=== PATIENT | male | born 1965 | race Caucasian/White ===

== ENCOUNTER 2021-06-10 02:40 | Day surgery (SDC) | payer BC, SELFPAY ==
[2021-05-24 14:04] VITALS: BMI 27.4
[2021-06-10 06:27] VITALS: BMI 26.6
[2021-06-10 06:35] VITALS: BP 118/80; PULSE 78; RESP 20; TEMP 36.1; O2SAT 99
[2021-06-10] MEDS: LACTATED RINGERS 1,000 ML 150 ML IV CONT (06:39)
--- NOTE | 2021-06-10 07:02 | P.PNAN_ITS ---
Anes - Initial Pre Proc Eval Procedure: Operation Date: 06/10/21 07:30 Proposed Procedures p Screening Colonoscopy - Justino Ravi MD Date/Time: 06/10/21 07:02 Surgeon: Justino Ravi MD Pre Op Diagnosis: neoplasm screening Patient Data Age: 56 Gender: M Height: 1.73 m Weight: 79.7 kg Last Vital Signs Temp 36.1 C L 06/10/21 06:35 Pulse 78 06/10/21 06:35 Resp 20 06/10/21 06:35 BP 118/80 06/10/21 06:35 Pulse Ox 99 06/10/21 06:35 Allergies Allergy/AdvReac Type Severity Reaction Status Date / Time Penicillins Allergy Unknown Unknown Verified 06/10/21 06:26 acetaminophen [From Vicodin] AdvReac Vomiting Verified 06/10/21 06:26 hydrocodone [From Vicodin] AdvReac Vomiting Verified 06/10/21 06:26 Home Medications Medication Instructions Recorded Confirmed Type No Home Medications 05/24/21 05/24/21 History Patient hx anesthesia problems: none Family hx anesthesia problems: none Results Review: All pre-operative results and documents have been reviewed as part of the pre-operative evaluation. [facility] Social History Social History Smoking status: Never smoker Alcohol intake: current Drinks per week: 1 Living arrangements: with family Spiritual care concerns: No Anes - Eval Final PreProcedure Day of Procedure 06/10/21 07:02 Patient weight: overweight Heart: regular rate and rhythm Lungs: clear to auscultation Airway: Mallampati scale class II Neurological: alert and oriented Last oral intake: >/= 8 hours ASA classification: II Emergent: no Anesthetic plan: proceed Anesthesia type and monitoring: general GIVS and standard monitoring Results Review: All pre-operative results and documents have been reviewed as part of the pre-operative evaluation. Informed Consent: The patient's anesthetic plan and its attendant risks and benefits were discussed with the patient/family/POA. Questions were solicited and answers provided to the satisfaction of the patient/family/POA.
--- NOTE | 2021-06-10 07:25 | WPDGICN ---
Assessment and Plan Assessment and plan (1) Encounter for screening colonoscopy: Code(s): Z12.11 - Encounter for screening for malignant neoplasm of colon Status: Acute Assessment and Plan: Patient presents today for screening colonoscopy. He appears to be at average risk for colon polyps. GI Consult Note Consult date/time: 06/10/21 07:25 HPI: Alon Us is a 56 year old male Presents for screening colonoscopy. Patient reports his current weight appetite bowel movements are normal. Denies abdominal pain. He has had no bleeding. Family history is noncontributory. No known first-degree relatives with polyps or cancer. Presents today for neoplasia screening colonoscopy. Review of Systems Review of Systems: All systems reviewed & are unremarkable except as noted in HPI and below PMFSH Social History Social History Smoking status: Never smoker Alcohol intake: current Drinks per week: 1 Living arrangements: with family Spiritual care concerns: No Meds Home Medications and Allergies Home Medications Medication Instructions Recorded Confirmed Type No Home Medications 05/24/21 05/24/21 History Allergies Allergy/AdvReac Type Severity Reaction Status Date / Time Penicillins Allergy Unknown Unknown Verified 06/10/21 06:26 acetaminophen [From Vicodin] AdvReac Vomiting Verified 06/10/21 06:26 hydrocodone [From Vicodin] AdvReac Vomiting Verified 06/10/21 06:26 Vital Signs Vital Signs - 24 hr 06/10/21 06:35 Temperature 96.9 F L Pulse Rate 78 Respiratory Rate 20 Blood Pressure 118/80 Pulse Oximetry 99 Exam Narrative: Physical exam reveals patient to be alert. Vital signs stable. HEENT exam is unremarkable. Patient is anicteric. Lungs are clear to auscultation and percussion. Heart is without murmur or extra sounds. Abdominal exam bowel sounds present soft nontender with no organomegaly. Digital external rectal exam is normal.
[2021-06-10 07:46] VITALS: BP 118/67; PULSE 67; RESP 20; O2SAT 97
[2021-06-10 07:56] VITALS: BP 112/78; PULSE 70; RESP 18; O2SAT 99
[2021-06-10 08:06] VITALS: BP 116/74; PULSE 68; RESP 20; O2SAT 99
== END 2021-06-10 08:18 | disposition home or self-care (01) ==
PROVIDERS: PCP Family Medicine; Visit Provider Internal Medicine Gastroenterology
PROC: 0DJD8ZZ Inspection of Lower Intestinal Tract, Via Natural or Artificial Opening Endoscopic (ICD-10-PCS; CPT 45378; principal; 2021-06-10 07:30)
DX: Z12.11 Encounter for screening for malignant neoplasm of colon (principal); K64.8 Other hemorrhoids
CPT/HCPCS: 45378; J2704; J7120

== ENCOUNTER 2024-09-18 15:11 | Outpatient (CLI) | payer OTHER, SELFPAY ==
--- NOTE | ~2024-09-18 | MR_ITS ---
EXAMINATION: MR lumbar spine wo con DATE: 09/18/2024 15:38 INDICATION: Low back pain. Bilateral lumbar radiculopathy. TECHNIQUE: Magnetic resonance imaging (MRI) of the lumbar spine was performed without intravenous con trast. Sequences included sagittal T2-weighted FSE, sagittal T2-weighted FS FSE, sagittal T1-weighted FSE, and axial T2-weighted FSE. COMPARISON: None FINDINGS: Alignment is normal. There is mild chronic anterior wedging of T10-T12 vertebral bodies. Th ere is mildly decreased disc height at L2-L3, L3-L4, and L4-L5 and moderately decreased disc height a t L5-S1. The distal spinal cord signal intensity is normal. The conus medullaris is at T12-L1. The fo llowing disc levels are specifically discussed: L1-L2: The disc does not extend beyond the endplate margin. There is mild bilateral facet joint osteo arthritis. There is no neural foraminal stenosis. There is no central canal stenosis. L2-L3: The disc is bulging. There is moderate right and severe left facet joint osteoarthritis. There is mild bilateral neural foraminal stenosis. There is mild central canal stenosis. L3-L4: The disc is bulging. There is severe bilateral facet joint osteoarthritis. There is mild bilat eral neural foraminal stenosis. There is mild central canal stenosis. L4-L5: The disc is bulging. There is severe right and moderate left facet joint osteoarthritis. There is mild bilateral neural foraminal stenosis. There is mild central canal stenosis. L5-S1: The disc is bulging. There is moderate bilateral facet joint osteoarthritis. There is mild seth ateral neural foraminal stenosis. There is mild central canal stenosis. IMPRESSION: 1. Moderate lumbar spondylosis. Reviewed, dictated and finalized at location A. TACKER
== END 2024-09-18 15:12 | disposition home or self-care (01) ==
PROVIDERS: PCP Student in an Organized Health Care Education/Training Program; Visit Provider Student in an Organized Health Care Education/Training Program
DX: M47.816 Spondylosis without myelopathy or radiculopathy, lumbar region (principal)
CPT/HCPCS: 72148

== ENCOUNTER 2025-06-09 09:37 | Outpatient (CLI) | payer OTHER, SELFPAY ==
--- NOTE | ~2025-06-09 | MR_ITS ---
EXAMINATION: MR hip RT wo con, MR hip LT wo con DATE: 06/09/2025 10:53 INDICATION: Osteoarthritis with bilateral hip pain TECHNIQUE: 1. Magnetic resonance imaging (MRI) of the right hip was performed without intravenous contrast. Sequences included full-field axial PD-weighted FS FSE and T1-weighted FSE, coronal of the pelvis with PD-weighted FS FSE, T2-weighted FSE and T1-weighted FSE, small field of view of the affected hip with axial PD- weighted FS FSE, sagittal PD-weighted FS FSE, coronal PD-weighted FS FSE and coronal T2 weighted FSE. Additional radial T1-weighted FGR oriented orthogonal to the acetabular rim were obtained for evaluation of the labrum. 2. MRI of the left hip was performed without intravenous contrast. Additional small [id number] sequences of the left hip included axial PD-weighted FS FSE, sagittal PD-weighted FS FSE, coronal PD-weighted FS FSE and coronal T2 weighted FSE and additional radial T1-weighted FGR oriented orthogonal to the acetabular rim were obtained for evaluation of the labrum. COMPARISON: Radiographs dated 03/17/2025 FINDINGS: Bones/labrum/cartilage: Alignment is normal. No fracture, avascular necrosis or pathologic marrow replacing process. There is bilateral decreased anterosuperior femoral head/neck offset which could predispose towards cam-type femoral acetabular impingement. Moderate osteoarthritis at the left hip with deep chondral ulceration at the cephalad aspect of the left acetabulum and at the posterior inferior, anterior inferior and superolateral aspect of the left femoral head. There is an subarticular cystlike change along the superolateral margin of the left acetabulum. With additional partial-thickness cartilage loss. Amorphous increased signal consistent with degeneration at the superolateral to posterior superior left acetabular labrum. Mild to moderate osteoarthritis at the contralateral right hip with extensive partial thickness cartilage loss which involves the majority of the cartilage thickness at the posterior inferior aspect of the femoral head and subarticular cystlike change at the posterior rim of the acetabulum. There is diffuse degenerative tearing of the anterior to posterior inferior right acetabular labrum. This most severe at the superolateral to posterior superior labrum which has a thickened macerated appearance. Small para labral cysts extending along the peripheral margins of the superolateral labrum. Mild to moderate lower lumbar spondylosis. Fluid: Symmetric physiologic amount of fluid within both hip joints. Soft tissues: Normal and symmetric muscle bulk and signal in the pelvis and visualized proximal thighs. The iliopsoas, gluteal and proximal hamstring tendons are normal. Prostatomegaly measuring 5.0 x 3.6 cm. Limited evaluation of visceral organs of the pelvis is otherwise unremarkable. No pathologically enlarged p elvic/inguinal lymphadenopathy. IMPRESSION: 1. 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 2. Prostatomegaly. 3. Mild to moderate lower lumbar spondylosis. Reviewed, dictated and finalized at location A. [facility] [employer] IMPRESSION: 1. Mild to moderate right and moderate left hip osteoarthritis with extensive d egenerative tearing of the bilateral acetabular raymon slightly more severe on t he right. 2. Prostatomegaly. 3. Mild to moderate lower lumbar spondylosis.
== END 2025-06-09 09:38 | disposition home or self-care (01) ==
LOC: GOSHIMG 09:37
PROVIDERS: PCP Family Medicine; Visit Provider Orthopaedic Surgery
DX: M16.0 Bilateral primary osteoarthritis of hip (principal); S73.191A Other sprain of right hip, initial encounter; S73.192A Other sprain of left hip, initial encounter; N40.0 Benign prostatic hyperplasia without lower urinary tract symptoms; M43.06 Spondylolysis, lumbar region; X58.XXXA Exposure to other specified factors, initial encounter
CPT/HCPCS: 73721